=== PATIENT | male | born 1960 | race Caucasian/White ===

== ENCOUNTER → 2018-01-01 | Outpatient (CLI) | payer BC ==
--- NOTE | 2018-01-01 09:37 | PCVCIMAG ---
APPROVED REPORT Laterality: Bilateral Indications Stenosis CVA/TIA: Doppler Spectral Velocity Analysis PSV / EDVPSV / EDV ECA (R) 107 / 19 cm/sECA (L) 87 / 21 cm/s dICA (R) 66 / 30 cm/sdICA (L) 53 / 22 cm/s Ronaldo (R) 57 / 14 cm/smICA (L) 53 / 23 cm/s pICA (R) 81 / 26 cm/spICA (L) 83 / 18 cm/s Bulb (R) 48 / 17 cm/sBulb (L) 59 / 19 cm/s dCCA (R) 86 / 26 cm/sdCCA (L) 81 / 21 cm/s mCCA (R) 72 / 22 cm/smCCA (L) 85 / 25 cm/s Vert (R) 35 / 12 cm/sVert (L) 47 / 18 cm/s ICA/CCA 0.94 ICA/CCA 1.02 Findings The right carotid bulb has moderate calcified plaque. The right proximal internal carotid artery shows <40% stenosis. The right common carotid artery shows no significant stenosis. The right external carotid artery shows no significant stenosis. The left carotid bulb has no significant plaque. The left proximal internal carotid artery shows no significant stenosis. The left common carotid artery shows no significant stenosis. The left external carotid artery shows no significant stenosis. Conclusion 1. Right internal carotid artery stenosis (<40%) 2. Left carotid without significant stenosis 3. Antegrade vertebral flow
--- NOTE | 2018-01-01 11:05 | PCVCIMAG ---
APPROVED REPORT Study performed: 01/01/2018 09:53:34 EXAM: Comprehensive 2D, Doppler, and color-flow Echocardiogram Patient Location: Echo lab Status: routine BSA: 2.15 HR: 58 bpmBP: 110/80 mmHg Rhythm: NSR Other Information Study Quality: Adequate Risk Factors: Cardiac Risk Factors: HTN, FHX of CAD Indications Hypertension/HDD Numbness, Tingling arms. 2D Dimensions LVEF(%): 38.28 (>50%) IVSd: 11.41 (7-11mm)LVOT Diam: 21.55 (18-24mm) LVDd: 47.56 mm PWd: 10.18 (7-11mm)Ascending Ao: 34.95 (22-36mm) LVDs: 38.76 (25-40mm) Left Atrium: 39.27 (27-40mm) Aortic Root: 29.17 mm Leiva's LVEF: 38.28 % Volumes Left Atrial Volume (Systole) Single Plane 4CH: 43.61 mLSingle Plane 2CH: 34.53 mL LA ESV Index: 20.00 mL/m2 Aortic Valve AoV Peak Олег.: 1.61 m/s AO Peak Gr.: 10.36 mmHg Mitral Valve E/A Ratio: 0.6 MV Decel. Time: 196.79 ms MV E Max Олег.: 0.66 m/s MV A Олег.: 1.05 m/s MV PHT: 57.07 ms TDI E/Lateral E': 8.25E/Medial E': 9.43 Medial E' Олег.: 0.07 m/s Lateral E' Олег.: 0.08 m/s Pulmonary Valve PV Peak Gr.: 3.44 mmHg Pulmonary Vein P Vein S: 0.45 m/sP Vein A: 0.32 m/s P Vein D: 0.39 m/sP Vein A Dur.: 93.4 msec P Vein S/D Ratio: 1.15 Tricuspid Valve TR Peak Олег.: 2.57 m/s TR Peak Gr.: 26.37 mmHg Left Ventricle The left ventricle is normal size. There is normal LV segmental wall motion. There is normal left ventricular wall thickness. Left ventricular systolic function is normal. The left ventricular ejection fraction is within the normal range. LVEF is 60-65%. Grade I - abnormal relaxation pattern. Right Ventricle The right ventricle is normal size. The right ventricular systolic function is normal. Atria The left atrium size is normal. Injection of bubbles documented no interatrial shunt. The right atrium size is normal. Aortic Valve The aortic valve is normal in structure. No aortic regurgitation is present. There is no aortic valvular stenosis. Mitral Valve The mitral valve is normal in structure. Trace mitral valve regurgitation noted. No evidence of mitral valve stenosis. Tricuspid Valve The tricuspid valve is normal in structure. There is no tricuspid valve regurgitation noted. Pulmonary artery pressure of 25mmHg Pulmonic Valve The pulmonary valve is normal in structure. There is no pulmonic valvular regurgitation. Great Vessels The aortic root is normal in size. IVC is normal in size and collapses with >50% inspiration Pericardium There is no pericardial effusion. <Conclusion> Left ventricular systolic function is normal. There is normal LV segmental wall motion. EF 65% No shunting by contrast bubble injection. Mild diastolic dysfunction The aortic valve is normal in structure. No aortic regurgitation or stenosis The mitral valve is normal in structure. Trace mitral valve regurgitation There is no tricuspid valve regurgitation noted. Pulmonary artery pressure of 25mmHg There is no pericardial effusion.
== END | disposition home or self-care (01) ==
LOC: PCVCIMAG 10:42
PROVIDERS: ATTEND Neuromusculoskeletal Medicine & OMM
DX: I65.21 Occlusion and stenosis of right carotid artery (principal); I10 Essential (primary) hypertension
CPT/HCPCS: 93306; 93880; C8929